=== PATIENT | male | born 1970 | race Caucasian/White ===

== ENCOUNTER 2019-07-25 17:38 | Emergency (ER) | payer OTHER ==
[~2019-07-25] VITALS: Ht 172.7 cm; Wt 72.6 kg
[2019-07-25 17:38] VITALS: BP_SYST 162
--- NOTE | 2019-07-25 17:38 | NUR ---
BROUGHT IN BY [facility]ED, VSS, PT PLACED IN WHEELCHAIR AND PLACED IN WAITING ROOM
--- NOTE | 2019-07-25 20:17 | NUR ---
Pt wheeled to bed 6 for evaluation
--- NOTE | 2019-07-25 20:30 | NUR ---
Pt BIB BLS with c/o ETOH and body pain. Pt states he drank "2 bottles of vodka earlier today." Pt states he has "pain all over body." Pt states pain is 9/10. Per EMS, pt walked into [facility] and asked for them to call 911. Will continue to monitor.
--- NOTE | 2019-07-25 20:40 | NUR ---
ER Dr. Marcelo at bedside examining patient.
[2019-07-25 21:18] LABS: BASOPHILS % (AUTO) 0.6 % (0.0-2.0); EOSINOPHILS # (AUTO) 0.1 K/uL (0.0-0.4); EOSINOPHILS % (AUTO) 0.8 % (0.0-4.0); HEMATOCRIT 43.6 % (36-54); HEMOGLOBIN 14.4 g/dL (14.0-18.0); LYMPHOCYTES # (AUTO) 1.3 K/uL (1.0-5.5); LYMPHOCYTES % (AUTO) 20.4 % (20.5-51.5); MEAN CORPUSCULAR HEMOGLOBIN 31 pg (27-31); MEAN CORPUSCULAR HGB CONC 33 % (32-36); MEAN CORPUSCULAR VOLUME 94 fL (79.0-98.0); MONOCYTES # (AUTO) 0.4 K/uL (0.0-1.0); MONOCYTES % (AUTO) 6.6 % (1.7-9.3); NEUTROPHILS # (AUTO) 4.7 K/uL (1.8-7.7); NEUTROPHILS % (AUTO) 71.6 % (40.0-70.0); PLATELET COUNT (AUTO) 388 K/uL (130-430); RED BLOOD CELL COUNT(AUTO) 4.65 MIL/uL (4.2-6.2); RED CELL DISTRIBUTION WIDTH 16.8 % (9.0-15.0); WHITE BLOOD COUNT (AUTO) 6.5 K/uL (4.8-10.8)
[2019-07-25] MEDS: NACL 0.9% 1,000 ML IV ONE (21:31)
--- NOTE | 2019-07-25 21:38 | NUR ---
Pt sleeping. Vitals WNL.
[2019-07-25 21:39] LABS: CALCIUM 9.1 mg/dL (8.4-11.0); CREATININE 0.86 mg/dL (0.55-1.30); POTASSIUM 3.8 mmol/L (3.5-5.1)
[2019-07-25 21:46] LABS: ALBUMIN 3.9 g/dL (3.4-4.8)
[2019-07-25] MEDS: ONDANSETRON HCL 4 MG/2 ML VIAL IVP ONE (22:07)
[2019-07-25] MEDS: LORazepam 2 MG/ML VIAL IVP ONE (22:07)
--- NOTE | 2019-07-25 22:07 | NUR ---
Pt medicated per MD orders. Will continue to monitor.
--- NOTE | 2019-07-25 23:49 | NUR ---
Patient resting quietly. No acute distress noted. Vital signs within normal range. Will continue to monitor.
[2019-07-26] MEDS: FOLIC ACID 1 MG, THIAMINE HCL 100 MG, MAGNESIUM SULFATE 1 GM, MVI 10 ML in NACL 0.9% 1,... IV ONE (00:48)
--- NOTE | 2019-07-26 00:48 | NUR ---
Pt medicated per MD orders. Pt tolerated well. Will continue to monitor.
[2019-07-26] MEDS ORDERED: THIAMINE HCL 100 MG/ML VIAL ONE (00:51)
[2019-07-26] MEDS ORDERED: FOLIC ACID 5 MG/ML VIAL IV ONE (00:51)
[2019-07-26] MEDS ORDERED: MAGNESIUM SULFATE 1 GM/2 ML VIAL ONE (00:51)
[2019-07-26] MEDS ORDERED: MVI 10 ML VIAL IV ONE (00:51)
--- NOTE | 2019-07-26 01:10 | NUR ---
Rechecked blood alcohol. Blood alcohol is 229. Pt homeless. Per MD, blood alcohol is too elevated to discharge. Will continue to monitor.
--- NOTE | 2019-07-26 03:10 | NUR ---
Patient resting quietly. No acute distress noted. Vital signs within normal range. Will continue to monitor.
--- NOTE | 2019-07-26 05:02 | NUR ---
Patient resting quietly. No acute distress noted. Vital signs within normal range. Will continue to monitor.
--- NOTE | 2019-07-26 07:10 | NUR ---
Report taken from Therese
--- NOTE | 2019-07-26 07:10 | NUR ---
Report given to VARUN Luna and VARUN Chambers.
--- NOTE | 2019-07-26 07:20 | NUR ---
pt may be dc'd back to were he came from if ambulating and able to intake Po, per MD.
--- NOTE | 2019-07-26 07:30 | NUR ---
pt given fluid challenge, tolerated fluids well
--- NOTE | 2019-07-26 07:50 | NUR ---
Pt given homeless packet upon DC, discussed resources with pt
--- NOTE | 2019-07-26 07:51 | NUR ---
Patient given written and verbal discharge instructions and verbalizes understanding. ER MD discussed with patient the results and treatment provided. Patient in stable condition. ID arm band removed. IV catheter removed intact and dressing applied, no active bleeding. Rx of librium given. Patient educated on pain management and to follow up with PMD. Pain Scale 0. Opportunity for questions provided and answered. Medication side effect fact sheet provided.
[2019-07-26 07:55] VITALS: BP_SYST 134
== END 2019-07-26 07:51 | disposition home or self-care (01) ==
LOC: SED 17:38
DX: F10.129 Alcohol abuse with intoxication, unspecified (principal); Y90.8 Blood alcohol level of 240 mg/100 ml or more; Z87.891 Personal history of nicotine dependence
CPT/HCPCS: 36415; 80053; 85025; 96365; 96366; 96375; 99283; G0482; J2060; J2405; J3411; J3475; J3490; J7030